=== PATIENT | male | born 1975 | race Hispanic/Latino ===

== ENCOUNTER 2017-11-17 20:12 | Emergency (ER) | payer SELFPAY ==
[2017-11-17] MEDS ORDERED: Bacitracin Zinc 1 Packet ONE (22:34)
== END 2017-11-17 23:36 | disposition home or self-care (01) ==
LOC: NAV ERS 20:12
DX: L02.31 Cutaneous abscess of buttock (principal); L03.317 Cellulitis of buttock; J45.909 Unspecified asthma, uncomplicated
CPT/HCPCS: 10061; 99152; 99153

== ENCOUNTER 2017-12-19 12:22 | Outpatient (CLI) | payer SELFPAY | END 2017-12-19 12:23 | disposition home or self-care (01) | LOC: NAV LAB 12:22 | PROVIDERS: ATTEND Pathology Anatomic Pathology & Clinical Pathology | DX: Z51.81 Encounter for therapeutic drug level monitoring (principal); Z79.899 Other long term (current) drug therapy ==